=== PATIENT | female | born 1985 | race Caucasian/White ===

== ENCOUNTER 2017-02-12 18:05 | Emergency (ER) | payer OTHER ==
[~2017-02-12] VITALS: Ht 157.5 cm; Wt 59.0 kg
[~2017-02-12 18:05] MED LIST: ALBU8I INH; IBUP800T23 PO
[2017-02-12 18:32] VITALS: BP 117/68; PULSE 72; RESP 16; TEMP 98.6
[2017-02-12] MEDS ORDERED: ACETAMINOPHEN 325 MG TAB PO ONE (20:00)
[2017-02-12] MEDS ORDERED: SUBO8MIS SL (20:04)
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
[2017-02-12] MEDS ORDERED: DICL75TA PO (20:22)
[2017-02-12] MEDS ORDERED: CYCL1TAB29 PO (20:22)
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
[2017-02-12 21:14] VITALS: RESP 16
== END 2017-02-12 21:15 | disposition home or self-care (01) ==
LOC: PHED 18:05 → PHEFT 21:15
DX: S80.02XA Contusion of left knee, initial encounter (principal); S80.01XA Contusion of right knee, initial encounter; S13.4XXA Sprain of ligaments of cervical spine, initial encounter; F17.200 Nicotine dependence, unspecified, uncomplicated; Z86.2 Personal history of diseases of the blood and blood-forming organs and certain disorders involving the immune mechanism; Z86.69 Personal history of other diseases of the nervous system and sense organs; V59.88XA Occupant (driver) (passenger) of pick-up truck or van injured in other specified transport accidents, initial encounter; Y92.410 Unspecified street and highway as the place of occurrence of the external cause
CPT/HCPCS: 72125; 73560

== ENCOUNTER 2017-11-23 11:38 | Emergency (ER) | payer MEDICAID ==
[~2017-11-23] VITALS: Ht 160 cm; Wt 63.0 kg
[~2017-11-23 11:38] MED LIST changes: -ALBU8I INH; +CYCL10TA PO; +DICL75TA PO; -IBUP800T23 PO; +SUBO8MIS SL
[2017-11-23 11:39] VITALS: BP 151/68; PULSE 77; RESP 16; TEMP 99.1; O2SAT 99
[2017-11-23] MEDS ORDERED: BUPR150XL PO (11:51)
[2017-11-23] MEDS ORDERED: CLON0.1T PO (11:51)
[2017-11-23] MEDS ORDERED: EPIN1INJ24 SQ (12:47)
[2017-11-23] MEDS ORDERED: PRED20 PO (12:47)
--- NOTE | 2017-11-23 12:52 | PD ---
HPI Chief Complaint: Allergic/Adverse Reaction Time Seen by Provider: 12:12 Travel History International Travel<30 days: No Contact w/Intl Traveler<30days: No Traveled to known affect area: No History of Present Illness HPI 32-year-old female here for evaluation of possible allergic reaction to trigger fish. Patient reports she ate a fish sandwich last night and developed a tingling sensation in her throat. Symptoms resolved after taking one 25 mg tab of Benadryl. She reports she had a similar episode prior when she handled trigger fish in the kitchen and had a tingling sensation in her hands. She took Benadryl both times and symptoms resolved. She woke this morning and noticed that she had mild swelling to her right upper lid which concerned her and prompted her visit today. She has no symptoms currently. No wheezing, no oral swelling, no difficulty swallowing, no change in voice. No prior anaphylaxis. PFSH Past Medical History Autoimmune Disease: Yes (Lupus) Depression: Yes Diminished Hearing: No Neurologic: Yes (herinated disk/TRIGEMINAL NEURALGIA) Immunizations Current: No Tetanus Vaccination: < 5 Years Influenza Vaccination: Yes ?: Not LMP: 11/21/2017 : 6 Para: 2 Miscarriage: 3 Past Surgical History Appendectomy: Yes Social History Alcohol Use: Yes (rarely ) Tobacco Use: Yes (1 PPD) Substance Use: No Allergies-Medications (Allergen,Severity, Reaction): Coded Allergies: diphenhydramine (Unverified Allergy, Severe, PT DENIES, 11/23/17) erythromycin base (Unverified Allergy, Severe, Anaphylaxis, 11/23/17) latex (Unverified Allergy, Severe, Rash, 11/23/17) Reported Meds & Prescriptions Reported Meds & Active Scripts Active Reported Clonidine (Clonidine HCl) 0.1 Mg Tab 0.1 Mg PO DAILY Wellbutrin Xl 24 HR (Bupropion HCl) 150 Mg Tab 150 Mg PO DAILY Suboxone Sublingual Film (Buprenorphine-Naloxone Sublingual Film) 8-2 Mg Film 1 Film SL DAILY Unique ID number required: Review of Systems Except as stated in HPI: all other systems reviewed are Neg Eyes: No: Visual changes HENT: No: Headaches Cardiovascular: No: Chest Pain or Discomfort Respiratory: No: Shortness of Breath Gastrointestinal: No: Abdominal Pain Physical Exam Narrative GENERAL: Alert well-appearing female. No distress. SKIN: Warm and dry. No rash. HEAD: Normocephalic. EYES: No injection or drainage. No eyelid swelling. THROAT: No oral pharyngeal swelling. No pharyngeal erythema. No tonsillar hypertrophy. Uvula is midline. Airway is patent. NECK: Supple, trachea midline. CARDIOVASCULAR: Regular rate and rhythm RESPIRATORY: Breath sounds equal bilaterally. No accessory muscle use. No wheezing. GASTROINTESTINAL: Abdomen soft, non-tender, nondistended. Data Data Last Documented VS Vital Signs Date Time Temp Pulse Resp B/P (MAP) Pulse Ox O2 Delivery O2 Flow Rate FiO2 11/23/17 11:51 Room Air 11/23/17 11:39 99.1 77 16 151/68 (95) 99 MDM Medical Decision Making Medical Screen Exam Complete: Yes Emergency Medical Condition: Yes Differential Diagnosis Allergic reaction, other Narrative Course 32-year-old female with possible allergic reaction to trigger fish. Patient is currently asymptomatic after taking Benadryl. Ingested the fish yesterday. She will be put on steroids and instructed to continue the Benadryl. 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 Prescription and directions for EpiPen should she ever have an anaphylactic reaction. Follow up with an datastage architect. Avoid trigger fish. Diagnosis Primary Impression: Allergic reaction Qualified Codes: T78.40XA - Allergy, unspecified, initial encounter Referrals: POWER CUTTING MACHINE OPERATOR POWER CUTTING MACHINE OPERATOR [facility] Additional Instructions: Continue the Benadryl every 6 hours. Take the steroids as prescribed. Avoid any contact with turgor fish. Follow-up with an datastage architect Scripts Epinephrine Inj (Epinephrine Inj) 0.15 Mg/0.3 Ml Inj 0.3 MG SQ DIRECTED, #1 INJECTION 0 Refills Prov: Aaliyah Gibbs 11/23/17 Prednisone (Prednisone) 20 Mg Tab 40 MG PO DAILY, #10 TAB 0 Refills Take 40 mg (2 tablets) daily for 5 days Prov: Aaliyah Gibbs 11/23/17 Disposition: 01 DISCHARGE HOME Condition: Stable Aaliyah Gibbs Nov 23, 2017 12:52
== END 2017-11-23 13:07 | disposition home or self-care (01) ==
LOC: PHEFT 11:38
DX: T78.40XA Allergy, unspecified, initial encounter (principal); M32.9 Systemic lupus erythematosus, unspecified; F32.9 Major depressive disorder, single episode, unspecified
CPT/HCPCS: 99284